=== PATIENT | male | born 1965 | race Caucasian/White ===

== ENCOUNTER → 2019-05-12 16:30 | Outpatient (BNVA) | payer SELFPAY | PROVIDERS: Family Provider Nurse Practitioner Family; PCP Nurse Practitioner Family; Referring Provider Nurse Practitioner Family; Visit Provider Urology | DX: R31.0 Gross hematuria (principal); N20.1 Calculus of ureter | CPT/HCPCS: 81001; 87086; 88112 ==

== ENCOUNTER 2019-06-09 10:00 | Outpatient (CLI) | payer SELFPAY ==
--- NOTE | 2019-06-09 10:00 | CT_ITS ---
WS: [id number] CT ABDOMEN AND PELVIS WITH AND WITHOUT CONTRAST HISTORY: Microscopic Hematuria TECHNIQUE: Unenhanced 5 mm axial imaging first performed through the abdomen. Post contrast imaging t hrough the abdomen and pelvis. Oral contrast has not been provided. Sagittal and coronal reformats a re submitted. All CT scans at [facility] use at least one of these dose optimization tech niques: automated exposure control; mA and/or kV adjustment per patient size (includes targeted exams where dose is matched to clinical indication); or iterative reconstruction. CONTRAST: Omnipaque 300; 95 mL IV. DLP: 5278.74 mGy.cm COMPARISON: None available. Lung bases are clear. Heart size is normal. No pericardial or pleural effusions. Small hiatal hernia. RIGHT kidney: RIGHT kidney is normal length at 12.1 cm. There are several small hypoattenuating sergio s in the kidney. The largest in the lower pole measures 2.6 x 2.3 cm without significant enhancement. The remaining hypodensities are also probably cysts. No solid mass, stone/calcification or obstructi on. No perinephric stranding. Good excretion from the kidney with normal filling of the ureter. LEFT kidney: Kidney measures 11.6 cm in length. No renal stone/calcification or mass. No obstruction. No urological filling defect. LEFT ureter is normal. Normal size liver with diffuse moderate hepatic steatosis. Spleen is normal size with granulomata. Ga llbladder is slightly contracted with no adjacent inflammation. No bile duct dilatation. Normal pancr eas and adrenal glands. No adenopathy or ascites. The appendix is normal. No GI tract obstruction. There are a few very small diverticula in the descen ding and sigmoid colon without acute inflammation. No adenopathy. Urinary bladder is well distended. No filling defect in the bladder. Mild lumbar and thoracic spondylosis. No bone destruction. Remote fractures in the lateral inferior R IGHT rib cage. CT/CT abdomen pelvis wo/w [id number] IMPRESSION: 1. No solid renal mass, obstruction or stones. 2. RIGHT renal cysts. The largest in the lower pole measures 2.6 x 2.3 cm. 3. Hepatic steatosis. 4. Mild diverticulosis. 5. Negative urinary bladder.
[2019-06-09] MEDS: iohexol 300 mg/mL 100 mL Btl IV (10:22)
== END 2019-06-09 10:01 | disposition home or self-care (01) ==
PROVIDERS: Family Provider Nurse Practitioner Family; PCP Nurse Practitioner Family; Visit Provider Urology
DX: N28.1 Cyst of kidney, acquired (principal); K76.0 Fatty (change of) liver, not elsewhere classified; K57.90 Diverticulosis of intestine, part unspecified, without perforation or abscess without bleeding; R31.29 Other microscopic hematuria
CPT/HCPCS: 74178; 81001

== ENCOUNTER → 2020-05-03 13:15 | Outpatient (BNVA) | payer OTHER, SELFPAY | PROVIDERS: Family Provider Nurse Practitioner Family; PCP Nurse Practitioner Family; Visit Provider Internal Medicine Cardiovascular Disease | DX: I50.9 Heart failure, unspecified (principal) | CPT/HCPCS: 80048 ==

== ENCOUNTER 2020-06-23 19:45 | Emergency (ER) | payer OTHER, SELFPAY ==
[2020-06-23 19:52] VITALS: BP 144/81; PULSE 83; RESP 16; TEMP 36.9; O2SAT 96; BMI 40.4
--- NOTE | 2020-06-23 20:22 | W.ED.GENADLT ---
Documented by User: JEANNETTE Salazar 06/24/20 00:51 HPI - General Adult General: Chief complaint: General Medical Stated complaint: PHY REF/ABNORMAL LABS Time Seen by Provider: 06/23/20 20:21 Source: patient and family Mode of arrival: ambulatory Limitations: no limitations History of Present Illness: HPI narrative: Patient is a 55-year-old male with a history of nonischemic cardiomyopathy, severely depressed LV function estimated ejection fraction 38%, hypertension, and mild to moderate aortic insufficiency here after he was called with a critical potassium result. Patient states his only complaint is fatigue that he has had over the last few weeks. He is set to follow-up with primary care for vitamin testing. He tell me he has been diagnosed with a leaky heart valve and cardiology has spoken to him about surgery regarding this but patient is opting to treat with medications at this time. He states he was taking lasix and spironolactone but had unwanted side effects from the spironolactone so was taken off this and replaced with metolazone. He takes oral potassium daily. He reportedly gets up frequently at night to urinate so wonders if this could be contributing to his fatigue. Associated symptoms: Deny chest pain, confusion, dyspnea, headache(s), malaise, nausea, rash or vomiting Review of Systems Const: Reports: fatigue; Denies: fever(s), chills, body aches, malaise or night sweats Eyes: Denies: change in vision or blurry vision Card: Denies: chest pain Resp: Denies: dyspnea GI: Denies: nausea or vomiting Musc: Denies: neck pain or back pain Skin/Breast: Denies: rash Neuro: Denies: headache(s), numbness in extremities, weakness in extremities, sensory changes, frequent falls, dizziness or confusion PFSH ED PFSH: Medical History Cardiomyopathy Chest pain CHF (congestive heart failure) HTN (hypertension) Microscopic hematuria Family History Family/Other CAD (coronary artery disease) Diabetes Social History Smoking and tobacco status: never smoked Alcohol intake: never Adopted: No Caregiver/support person: No Lives independently: No Household members: spouse Marital status: Current occupational status: employed and unemployed Current occupation: SELF EMPLOYED Physical Exam Const: COMMON NORMALS: no acute distress, patient oriented x3, no limitations and alert GENERAL APPEARANCE: cooperative NUTRITIONAL APPEARANCE: obese ORIENTATION/CONSCIOUSNESS: Yes awake, Yes oriented to person, Yes oriented to place and Yes oriented to time HENMT: COMMON NORMALS: normocephalic and atraumatic HEAD & SCALP: normocephalic and atraumatic Resp: COMMON NORMALS: normal respiratory effort and clear to auscultation bilaterally AUSCULTATION: clear to auscultation bilaterally Cardio: COMMON NORMALS: regular rate and regular rhythm RATE: regular rate RHYTHM: regular rhythm Extremity: COMMON NORMALS: no calf tenderness and no pedal edema Neuro: COMMON NORMALS: patient oriented x3 SENSORIUM/ORIENTATION: Yes alert, Yes oriented to person, Yes oriented to place and Yes oriented to time Skin: COMMON NORMALS: no rashes or lesions noted GENERAL SKIN EXAM: no rashes or lesions noted Course Vital Signs: Vital signs: Vital Signs Temperature 98.4 F 06/24/20 01:17 Pulse Rate 70 06/24/20 01:17 Respiratory Rate 20 H 06/24/20 01:17 Blood Pressure 141/95 06/24/20 01:17 Pulse Oximetry 94 06/24/20 01:17 MDM - General Adult MDM Narrative: Medical decision making narrative: Patient's potassium upon arrival was 2.6. He was given 40meq oral potassium and 20meq IV. Repeat BMP somehow showed an even lower potassium than when he arrived at 2.5. Magnesium was normal. I do not note any acute abnormalities to his EKG. He was noted to have hyperglycemia at 333. Patient tells me he does not have a diagnosis of diabetes. His HA1C was 7.6. Patient was also noted to have elevated LFTs which are nonspecific. He does not complain of abdominal pain. His bilirubin was normal. Patient's vital signs of been stable throughout his stay. I told patient because of his continued critically low potassium that he needs to come into the hospital for further evaluation however patient adamantly refuses. 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 Patient was counseled on the risks of severely low hypokalemia including cardiac arrhythmias, severe muscle weakness that can cause respiratory failure, nephropathy, and even . Patient was given an additional 60meq oral potassium prior to signing out AMA. Patient was urged to come back to the emergency department tomorrow for lab recheck. Patient agrees to this. Lab Data: Labs: Lab Results 06/23/20 06/23/20 06/23/20 Range/Units 20:36 20:36 20:36 WBC 8.2 (4.0-10.0) 10^3/ uL RBC 5.00 (4.1-5.3) 10^6/u L Hgb 16.4 (11.7-16.6) g/dL Hct 47.1 (42.0-52.0) % MCV 94.2 H (80-94) fL MCH 32.8 (28.0-34.0) pg MCHC 34.8 (30.0-36.0) g/dL RDW 12.0 L (12.1-15.1) % Plt Count 171 (130-400) 10^3/c mm MPV 11.4 H (7.4-10.4) fL Neut % (Auto) 60.4 % Lymph % (Auto) 27.2 % [place] % (Auto) 10.4 % Eos % (Auto) 1.1 % Baso % (Auto) 0.7 % Neut # (Auto) 4.97 (1.8-7.7) 10^3/u L Lymph # (Auto) 2.2 (0.8-4.8) 10^3/u L [place] # (Auto) 0.9 (0.2-0.9) 10^3/u L Eos # (Auto) 0.1 (0.0-0.8) 10^3/u L Baso # (Auto) 0.1 (0.0-0.1) 10^3/u L Nucleated RBC % (a uto) 0 % Nucleated RBCs # 0.0 /100WBC Sodium Cancelled Potassium Cancelled Chloride Cancelled Carbon Dioxide Cancelled Anion Gap Cancelled BUN Cancelled Creatinine Cancelled GFR Calculation Cancelled Glucose Cancelled Estimat Average Gl ucose 171 Hemoglobin A1c 7.6 H (4.0-6.0) % Calculated Osmolal ity Cancelled Calcium Cancelled Magnesium Cancelled Total Bilirubin Cancelled AST Cancelled ALT Cancelled Alkaline Phosphata se Cancelled Total Protein Cancelled Albumin Cancelled Globulin Cancelled 06/23/20 06/23/20 Range/Units 21:39 23:43 WBC (4.0-10.0) 10^3/ uL RBC (4.1-5.3) 10^6/u L Hgb (11.7-16.6) g/dL Hct (42.0-52.0) % MCV (80-94) fL MCH (28.0-34.0) pg MCHC (30.0-36.0) g/dL RDW (12.1-15.1) % Plt Count (130-400) 10^3/c mm MPV (7.4-10.4) fL Neut % (Auto) % Lymph % (Auto) % [place] % (Auto) % Eos % (Auto) % Baso % (Auto) % Neut # (Auto) (1.8-7.7) 10^3/u L Lymph # (Auto) (0.8-4.8) 10^3/u L [place] # (Auto) (0.2-0.9) 10^3/u L Eos # (Auto) (0.0-0.8) 10^3/u L Baso # (Auto) (0.0-0.1) 10^3/u L Nucleated RBC % (a uto) % Nucleated RBCs # /100WBC Sodium 132 L 132 L Potassium 2.6 L* 2.5 L* Chloride 88 L 90 L Carbon Dioxide 33 H 32 H Anion Gap 13.6 12.5 BUN 20 18 Creatinine 1.1 0.9 GFR Calculation 69.8 L 87.9 L Glucose 333 H 291 H Estimat Average Gl ucose Hemoglobin A1c (4.0-6.0) % Calculated Osmolal ity 290 287 Calcium 8.5 8.4 L Magnesium 2.1 Total Bilirubin 0.4 AST 83 H ALT 64 H Alkaline Phosphata se 159 H Total Protein 7.0 Albumin 3.4 L Globulin 3.6 EKG Data^: EKG 1: EKG interpretation date: 06/24/20 EKG interpretation time: 00:35 Interpretation: Sinus rhythm Rate [address] elevation or depression changes noted Discharge Plan Discharge Patient Disposition: Left Against Medical Advice Clinical Impression: Acute hypokalemia, Diabetes mellitus, new onset Condition: Stable Prescriptions: No Action metolazone 2.5 mg tablet 2.5 mg PO BID Qty: 180 RF: 3 lidocaine HCl 2 % jelly 15 ml INTRA-URET ONCE Qty: 1 RF: 0 aspirin 81 mg tablet,delayed release (DR/EC) 81 mg PO QDAY RF: 0 carvedilol 6.25 mg tablet 6.25 mg PO DIRECTED RF: 0 furosemide [Lasix] 40 mg tablet 60 mg PO DIRECTED Qty: 135 RF: 3 spironolactone [Aldactone] 25 mg tablet 25 mg PO DAILY Qty: 90 RF: 3 potassium chloride 20 mEq tablet extended release 20 meq PO BID Qty: 180 RF: 3 Referrals: Ammy Duque FNP-C [Primary Care Provider] - Coding Level of Care Code ED Monument Installer for Chg Fwd Exam Detailed Documented by User: Nish Sharpe DO 06/24/20 03:11 HPI - General Adult General: Chief complaint: General Medical Stated complaint: PHY REF/ABNORMAL LABS Time Seen by Provider: 06/23/20 20:21 [facility] PFSH: Medical History Cardiomyopathy Chest pain CHF (congestive heart failure) HTN (hypertension) Microscopic hematuria Family History Family/Other CAD (coronary artery disease) Diabetes Social History Smoking and tobacco status: never smoked Alcohol intake: never Adopted: No Caregiver/support person: No Lives independently: No Household members: spouse Marital status: Current occupational status: employed and unemployed Current occupation: SELF EMPLOYED Course Vital Signs: Vital signs: Vital Signs Temperature 98.4 F 06/24/20 01:17 Pulse Rate 70 06/24/20 01:17 Respiratory Rate 20 H 06/24/20 01:17 Blood Pressure 141/95 06/24/20 01:17 Pulse Oximetry 94 06/24/20 01:17 MDM - General Adult MDM Narrative: Medical decision making narrative: 55-year-old male originally seen by Mrs. Sood?ALAN Cuevas. I agree with her history, evaluation, and treatment. This patient came in with a outpatient labs showing potassium of 2.4. It was 2.6 here initially. He was given oral potassium in pill form of 40 mEq as well as 20 mEq IV. His potassium following this was 2.5 more potassium was ordered. The patient was urged to stay in observation due to a significantly low potassium, but the patient refused and signed out AMA. He knows his risks of doing so, including heart failure, arrhythmia, and . Lab Data: Labs: Lab Results 06/23/20 06/23/20 06/23/20 Range/Units 20:36 20:36 20:36 WBC 8.2 (4.0-10.0) 10^3/ uL RBC 5.00 (4.1-5.3) 10^6/u L Hgb 16.4 (11.7-16.6) g/dL Hct 47.1 (42.0-52.0) % MCV 94.2 H (80-94) fL MCH 32.8 (28.0-34.0) pg MCHC 34.8 (30.0-36.0) g/dL RDW 12.0 L (12.1-15.1) % Plt Count 171 (130-400) 10^3/c mm MPV 11.4 H (7.4-10.4) fL Neut % (Auto) 60.4 % Lymph % (Auto) 27.2 % [place] % (Auto) 10.4 % Eos % (Auto) 1.1 % Baso % (Auto) 0.7 % Neut # (Auto) 4.97 (1.8-7.7) 10^3/u L Lymph # (Auto) 2.2 (0.8-4.8) 10^3/u L [place] # (Auto) 0.9 (0.2-0.9) 10^3/u L Eos # (Auto) 0.1 (0.0-0.8) 10^3/u L Baso # (Auto) 0.1 (0.0-0.1) 10^3/u L Nucleated RBC % (a uto) 0 % Nucleated RBCs # 0.0 /100WBC Sodium Cancelled Potassium Cancelled Chloride Cancelled Carbon Dioxide Cancelled Anion Gap Cancelled BUN Cancelled Creatinine Cancelled GFR Calculation Cancelled Glucose Cancelled Estimat Average Gl ucose 171 Hemoglobin A1c 7.6 H (4.0-6.0) % Calculated Osmolal ity Cancelled Calcium Cancelled Magnesium Cancelled Total Bilirubin Cancelled AST Cancelled ALT Cancelled Alkaline Phosphata se Cancelled Total Protein Cancelled Albumin Cancelled Globulin Cancelled 06/23/20 06/23/20 Range/Units 21:39 23:43 WBC (4.0-10.0) 10^3/ uL RBC (4.1-5.3) 10^6/u L Hgb (11.7-16.6) g/dL Hct (42.0-52.0) % MCV (80-94) fL MCH (28.0-34.0) pg MCHC (30.0-36.0) g/dL RDW (12.1-15.1) % Plt Count (130-400) 10^3/c mm MPV (7.4-10.4) fL Neut % (Auto) % Lymph % (Auto) % [place] % (Auto) % Eos % (Auto) % Baso % (Auto) % Neut # (Auto) (1.8-7.7) 10^3/u L Lymph # (Auto) (0.8-4.8) 10^3/u L [place] # (Auto) (0.2-0.9) 10^3/u L Eos # (Auto) (0.0-0.8) 10^3/u L Baso # (Auto) (0.0-0.1) 10^3/u L Nucleated RBC % (a uto) % Nucleated RBCs # /100WBC Sodium 132 L 132 L Potassium 2.6 L* 2.5 L* Chloride 88 L 90 L Carbon Dioxide 33 H 32 H Anion Gap 13.6 12.5 BUN 20 18 Creatinine 1.1 0.9 GFR Calculation 69.8 L 87.9 L Glucose 333 H 291 H Estimat Average Gl ucose Hemoglobin A1c (4.0-6.0) % Calculated Osmolal ity 290 287 Calcium 8.5 8.4 L Magnesium 2.1 Total Bilirubin 0.4 AST 83 H ALT 64 H Alkaline Phosphata se 159 H Total Protein 7.0 Albumin 3.4 L Globulin 3.6 Discharge Plan Discharge Patient Disposition: Left Against Medical Advice Clinical Impression: Acute hypokalemia, Diabetes mellitus, new onset Condition: Stable Prescriptions: No Action metolazone 2.5 mg tablet 2.5 mg PO BID Qty: 180 RF: 3 lidocaine HCl 2 % jelly 15 ml INTRA-URET ONCE Qty: 1 RF: 0 aspirin 81 mg tablet,delayed release (DR/EC) 81 mg PO QDAY RF: 0 carvedilol 6.25 mg tablet 6.25 mg PO DIRECTED RF: 0 furosemide [Lasix] 40 mg tablet 60 mg PO DIRECTED Qty: 135 RF: 3 spironolactone [Aldactone] 25 mg tablet 25 mg PO DAILY Qty: 90 RF: 3 potassium chloride 20 mEq tablet extended release 20 meq PO BID Qty: 180 RF: 3 Referrals: Ammy Duque FNP-C [Primary Care Provider] - Coding Level of Care Code ED Monument Installer for Chg Fwd Exam Detailed
[2020-06-23 20:26] VITALS: BP 140/83; PULSE 79; RESP 22; O2SAT 95
[2020-06-23] MEDS: potassium chloride premix 100 ML 50 MEQ IV (20:46)
[2020-06-23] MEDS: potassium chloride ER 20 mEq Tablet 40 MEQ PO (20:46)
[2020-06-23 20:58] LABS: Basophils # 0.1 10^3/uL (0.0-0.1); Basophils % 0.7 %; Eosinophils # 0.1 10^3/uL (0.0-0.8); Eosinophils % 1.1 %; Hematocrit 47.1 % (42.0-52.0); Hemoglobin 16.4 g/dL (11.7-16.6); Lymphocytes # 2.2 10^3/uL (0.8-4.8); Lymphocytes % 27.2 %; Mean Corpuscular HGB Conc 34.8 g/dL (30.0-36.0); Mean Corpuscular Hemoglobin 32.8 pg (28.0-34.0); Mean Corpuscular Volume 94.2 fL (80-94); Mean Platelet Volume 11.4 fL (7.4-10.4); Monocytes # 0.9 10^3/uL (0.2-0.9); Monocytes % 10.4 %; Neutrophils # 4.97 10^3/uL (1.8-7.7); Neutrophils % 60.4 %; Nucleated Red Blood Cells % 0 %; Platelet Count 171 10^3/cmm (130-400); White Blood Count 8.2 10^3/uL (4.0-10.0)
[2020-06-23 21:00] VITALS: BP 100/55; PULSE 72; RESP 18; O2SAT 95
[2020-06-23 22:00] VITALS: BP 131/71; PULSE 74; RESP 29; O2SAT 94
[2020-06-23 22:10] LABS: Alanine Aminotransferase 64 U/L (0-41); Albumin Level 3.4 g/dL (3.5-5.2); Alkaline Phosphatase 159 IU/L (40-130); Blood Urea Nitrogen 20 mg/dL (6-20); Calcium 8.5 mg/dL (8.5-10.5); Carbon Dioxide 33 mmol/L (22-29); Chloride 88 mmol/L (98-107); Globulin 3.6 g/dL (1.3-4.6); Glomerular Filtration Rate 69.8 mL/min (90-130); Glucose 333 mg/dL (65-115); Magnesium 2.1 mg/dL (1.7-2.3); Osmolality Calculated 290 mOsm/kg (285-295); Sodium 132 mmol/L (136-145); Total Bilirubin 0.4 mg/dL (0.15-1.2)
[2020-06-23 22:11] LABS: Anion Gap 13.6 (5-19)
[2020-06-23 22:12] LABS: Aspartate Amino Transferase 83 U/L (0-40)
[2020-06-23 22:13] LABS: Potassium 2.6 mmol/L (3.5-5.1)
[2020-06-23 23:00] VITALS: BP 132/76; PULSE 75; RESP 24; O2SAT 94
[2020-06-23 23:54] LABS: Estmated Average Glucose 171; Hemoglobin A1C 7.6 % (4.0-6.0)
[2020-06-24] VITALS: BP 129/73; PULSE 71; RESP 23; O2SAT 94
[2020-06-24 00:15] LABS: Anion Gap 12.5 (5-19); Blood Urea Nitrogen 18 mg/dL (6-20); Calcium 8.4 mg/dL (8.5-10.5); Carbon Dioxide 32 mmol/L (22-29); Chloride 90 mmol/L (98-107); Glomerular Filtration Rate 87.9 mL/min (90-130); Glucose 291 mg/dL (65-115); Osmolality Calculated 287 mOsm/kg (285-295); Sodium 132 mmol/L (136-145)
[2020-06-24 00:19] LABS: Potassium 2.5 mmol/L (3.5-5.1)
--- NOTE | 2020-06-24 00:37 | ECG_ITS ---
[facility] Test Date: 2020-06-24 Pat Name: Casimiro Garcia Department: Room: Gender: Male Dentist Private Practice: : 1965 Requested By: Monet Sood Order Number: [id number] Livia MD: Cristhian Hall M.D. Measurements Intervals [place] Rate: 74 P: 30 IA: 183 QRS: -23 QRSD: 119 T: 71 QT: 402 QTc: 446 Interpretive Statements SINUS RHYTHM BORDERLINE LEFT AXIS DEVIATION [QRS AXIS < -20] LEFT VENTRICULAR HYPERTROPHY AND ST-T CHANGE [VOLTAGE CRITERIA PLUS ST/T ABNORMALITY] INTERPRETATION BASED ON A DEFAULT AGE OF 40 YEARS Compared to ECG 02/20/2018 16:57:23 No significant changes Electronically Signed On 06-24-2020 19:40:15 GAMB CUTTER by Cristhian Hall M.D. [id number]
[2020-06-24] MEDS: potassium chloride ER 20 mEq Tablet 60 MEQ PO (01:11)
[2020-06-24 01:17] VITALS: BP 141/95; PULSE 70; RESP 20; TEMP 36.9; O2SAT 94
== END 2020-06-24 01:21 | disposition left against medical advice (07) ==
PROVIDERS: Emergency Provider Physician Assistant; PCP Nurse Practitioner Family
DX: E87.6 Hypokalemia (principal); E11.9 Type 2 diabetes mellitus without complications; Z79.82 Long term (current) use of aspirin; Z53.21 Procedure and treatment not carried out due to patient leaving prior to being seen by health care provider; I11.0 Hypertensive heart disease with heart failure; I50.9 Heart failure, unspecified
CPT/HCPCS: 80048; 80053; 83036; 83735; 85025; 93005; 96365; 96366; 99284; J3480

== ENCOUNTER 2020-06-24 22:35 | Emergency (ER) | payer OTHER, SELFPAY ==
[2020-06-24 22:56] VITALS: BP 144/87; PULSE 72; RESP 16; TEMP 36.2; O2SAT 96; BMI 40.4
[2020-06-25 00:34] VITALS: BP 132/77; PULSE 72; RESP 18; O2SAT 96
--- NOTE | 2020-06-25 00:42 | W.ED.GENADLT ---
HPI - General Adult General: Chief complaint: General Medical Stated complaint: here 06/23, potassium needs checked Time Seen by Provider: 06/25/20 00:33 Source: patient Mode of arrival: ambulatory Limitations: no limitations History of Present Illness: HPI narrative: 55-year-old male patient comes in today for concerns of low potassium. Patient was treated yesterday for a potassium level of 2.6. Patient had to sign out AMA in order to feed and do chores today. Patient comes back in tonight for recheck of potassium. Patient takes some strong diuretics which will swipe his potassium. Patient denies any chest pain or difficulty breathing. Review of Systems General: Reports: 10 or more systems reviewed and unremarkable except in HPI and below Endo: Reports: other (Recheck potassium) PFSH ED PFSH: Medical History Cardiomyopathy Chest pain CHF (congestive heart failure) HTN (hypertension) Microscopic hematuria Family History Family/Other CAD (coronary artery disease) Diabetes Social History Smoking and tobacco status: never smoked Alcohol intake: never Adopted: No Caregiver/support person: No Lives independently: No Household members: spouse Marital status: Current occupational status: employed and unemployed Current occupation: SELF EMPLOYED Physical Exam Const: COMMON NORMALS: no acute distress and patient oriented x3 GENERAL APPEARANCE: cooperative HENMT: COMMON NORMALS: normocephalic and Normal external nose present HEAD & SCALP: normal to inspection and normocephalic NOSE: Normal external nose present MOUTH: Normal oral and palatal mucosa present Eye: GENERAL EYE: appearance normal, both eyes and all related structures Neck/C-Spine: COMMON NORMALS: full ROM Chest: COMMONS NORMALS: normal inspection of the chest Resp: COMMON NORMALS: normal respiratory effort EFFORT & INSPECTION: Yes able to speak in complete sentences Cardio: COMMON NORMALS: regular rate and regular rhythm RATE: regular rate RHYTHM: regular rhythm GI: COMMON NORMALS: non-tender Back/Pelvis: COMMON NORMALS: thoracic and lumbar spine normal to inspection Extremity: COMMON NORMALS: normal to inspection Neuro: COMMON NORMALS: patient oriented x3 and moves all extremities Psych: COMMON NORMALS: mental status grossly normal and cooperative Skin: COMMON NORMALS: no rashes or lesions noted GENERAL SKIN EXAM: no rashes or lesions noted Course Vital Signs: Vital signs: Vital Signs Temperature 97.1 F L 06/24/20 22:56 Pulse Rate 72 06/25/20 00:34 Respiratory Rate 18 06/25/20 00:34 Blood Pressure 132/77 06/25/20 00:34 Pulse Oximetry 96 06/25/20 00:34 MDM - General Adult MDM Narrative: Medical decision making narrative: Patient comes in today for recheck of potassium. Patient is on metolazone and furosemide both which spilled potassium. 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 Patient appears well. Lungs are clear to auscultation. Abdomen soft nontender. Skin is warm and dry. Vital signs are normal. Differential diagnosis includes acute hypokalemia, adverse drug effect, ACS. Recheck on potassium noted at 2.6. Patient was given another 40 mEq of potassium and will continue on 40 mEq of potassium 3 times a day. Patient is going to hold furosemide until repeat potassium can be drawn. I do see expect that the Zaroxolyn is more likely the cause for the low potassium as have seen this before in the past. Patient is going to follow-up with his primary care provider on Friday for repeat potassium level, and will also contact Dr. Cooley's office to talk further with him. I reviewed need for patient to return to the emergency room including increased shortness of breath, irregular heart rate, and any chest pain. Patient reported understanding agreed to plan. Lab Data: Labs: Lab Results 06/25/20 Range/Units 00:45 Sodium 132 L (136-145) mmol/L Potassium 2.6 L* (3.5-5.1) mmol/L Chloride 88 L (98-107) mmol/L Carbon Dioxide 32 H (22-29) mmol/L Anion Gap 14.6 (5-19) BUN 17 (6-20) mg/dL Creatinine 0.9 (0.7-1.2) mg/dL GFR Calculation 87.9 L (90-130) mL/min Glucose 257 H (65-115) mg/dL Calculated Osmolal ity 284 L (285-295) mOsm/k g Calcium 9.7 (8.5-10.5) mg/dL Discharge Plan Discharge Patient Disposition: Home Clinical Impression: Hypokalemia due to loss of potassium Condition: Stable Prescriptions: Changed potassium chloride 20 mEq tablet extended release 40 meq PO BID Qty: 180 RF: 3 Held furosemide [Lasix] 40 mg tablet 60 mg PO DIRECTED Qty: 135 RF: 3 Hold Instructions: Resume on 06/28/20. No Action metolazone 2.5 mg tablet 2.5 mg PO BID Qty: 180 RF: 3 lidocaine HCl 2 % jelly 15 ml INTRA-URET ONCE Qty: 1 RF: 0 aspirin 81 mg tablet,delayed release (DR/EC) 81 mg PO QDAY RF: 0 carvedilol 6.25 mg tablet 6.25 mg PO DIRECTED RF: 0 spironolactone [Aldactone] 25 mg tablet 25 mg PO DAILY Qty: 90 RF: 3 Discharge Orders: Discharge ED (Routine); Ordered 06/25/20 Ordered By: Manny Nowak Referrals: Ammy Duque FNP-C [Primary Care Provider] - Discharge Diet: Usual diet Discharge Activity: Increase activity as tolerated Patient Instructions: Hypokalemia (ED), Opioid Safety Activity Restrictions/Additional Instructions: Hold furosemide for the next 3 days. Increase potassium to 40 mEq 3 times a day. Follow-up with primary care on Friday for recheck on potassium level. Talk with Dr. Edwards's office about the metolazone and furosemide regarding your potassium being low. Monitor for shortness of breath or chest pain or irregular heart rate. Return to the emergency department for any concerns. Coding Level of Care Code ED Asbestos Microscopist for Malissa Fwsantos Exam Comprehensive
[2020-06-25 01:17] LABS: Anion Gap 14.6 (5-19); Blood Urea Nitrogen 17 mg/dL (6-20); Calcium 9.7 mg/dL (8.5-10.5); Carbon Dioxide 32 mmol/L (22-29); Chloride 88 mmol/L (98-107); Glomerular Filtration Rate 87.9 mL/min (90-130); Glucose 257 mg/dL (65-115); Osmolality Calculated 284 mOsm/kg (285-295); Sodium 132 mmol/L (136-145)
[2020-06-25 01:23] LABS: Potassium 2.6 mmol/L (3.5-5.1)
[2020-06-25] MEDS: potassium chloride oral liq 20 mEq/15 mL UDC 40 MEQ PO (01:56)
[2020-06-25 01:58] VITALS: BP 138/79; PULSE 83; RESP 17; O2SAT 98
== END 2020-06-25 03:09 | disposition home or self-care (01) ==
PROVIDERS: Emergency Provider Nurse Practitioner Family; PCP Nurse Practitioner Family
DX: E87.6 Hypokalemia (principal); Z79.82 Long term (current) use of aspirin; I11.0 Hypertensive heart disease with heart failure; I50.9 Heart failure, unspecified
CPT/HCPCS: 80048

== ENCOUNTER → 2020-06-27 08:52 | Outpatient (BNVA) | payer OTHER, SELFPAY | PROVIDERS: PCP Nurse Practitioner Family; Visit Provider Nurse Practitioner Family | DX: R53.83 Other fatigue (principal); I10 Essential (primary) hypertension | CPT/HCPCS: 80053; 80061; 82306; 82607; 84443; 85025 ==

== ENCOUNTER → 2020-08-04 10:15 | Outpatient (BNVA) | payer OTHER, SELFPAY | PROVIDERS: PCP Nurse Practitioner Family; Visit Provider Internal Medicine Cardiovascular Disease | DX: I42.9 Cardiomyopathy, unspecified (principal); I50.9 Heart failure, unspecified; I10 Essential (primary) hypertension | CPT/HCPCS: 80048; 83735 ==

== ENCOUNTER → 2020-11-22 14:51 | Outpatient (BNVA) | payer OTHER, SELFPAY | PROVIDERS: PCP Nurse Practitioner Family; Visit Provider Urology | DX: R31.29 Other microscopic hematuria (principal); Z84.1 Family history of disorders of kidney and ureter | CPT/HCPCS: 81003 ==

== ENCOUNTER → 2021-03-20 08:37 | Outpatient (BNVA) | payer OTHER, SELFPAY | PROVIDERS: PCP Nurse Practitioner Family; Visit Provider Nurse Practitioner Family | DX: M54.9 Dorsalgia, unspecified (principal); R39.11 Hesitancy of micturition; M25.552 Pain in left hip; E11.69 Type 2 diabetes mellitus with other specified complication | CPT/HCPCS: 36416; 80053; 80061; 81000; 82962; 83036; 84153; 84443; 85025 ==

== ENCOUNTER 2021-03-22 09:28 | Outpatient (CLI) | payer OTHER, SELFPAY ==
--- NOTE | 2021-03-22 09:33 | XR_ITS ---
WS: [id number] Exam: XR hip LT 2-3V wo/w pel* [id number] Date/Time of Exam: 03/22/2021 9:33 AM Reason For Exam: M25.552 - Pain in left hip No fracture or dislocation. The joint compartment is well maintained. Normal soft tissues. Degenerati ve change of the acetabulum. XR/XR hip LT 2-3V wo/w pel* [id number] IMPRESSION: 1. Minimal degenerative change of the acetabulum. 2. No fracture or dislocation.
== END 2021-03-22 09:29 | disposition home or self-care (01) ==
LOC: RAD 09:31
PROVIDERS: PCP Nurse Practitioner Family; Visit Provider Nurse Practitioner Family
DX: M25.552 Pain in left hip (principal)
CPT/HCPCS: 73502

== ENCOUNTER → 2022-08-26 14:02 | Outpatient (BNVA) | payer MEDICAID, SELFPAY | PROVIDERS: PCP Family Medicine; Visit Provider Family Medicine | DX: M54.50 Low back pain, unspecified (principal) | CPT/HCPCS: 81000 ==

== ENCOUNTER → 2022-09-24 15:42 | Outpatient (BNVA) | payer MEDICAID, SELFPAY | PROVIDERS: PCP Family Medicine; Visit Provider Internal Medicine | DX: E11.9 Type 2 diabetes mellitus without complications (principal); E78.6 Lipoprotein deficiency | CPT/HCPCS: 36415; 80053; 80061; 82044; 82306; 83036; 84446; 84590; 84597 ==

== ENCOUNTER 2022-12-24 15:09 | Outpatient (CLI) | payer MEDICAID, SELFPAY ==
[2022-12-24 16:11] LABS: Estmated Average Glucose 157; Hemoglobin A1C 7.1 % (4.0-6.0)
[2022-12-24 16:21] LABS: Alanine Aminotransferase 24 U/L (0-41); Alkaline Phosphatase 115 U/L (40-130); Aspartate Amino Transferase 33 U/L (0-40); Blood Urea Nitrogen 16 mg/dL (6-20); Calcium 8.9 mg/dL (8.5-10.5); Carbon Dioxide 26 mmol/L (22-29); Chloride 109 mmol/L (98-107); Chol HDL Ratio 1.61 mg/dL (1.0-5.00); Cholesterol 103 mg/dL (0-200); Glomerular Filtration Rate 77.3 mL/min (90-130); Glucose 150 mg/dL (65-115); HDL Cholesterol 64 mg/dL (60-100); LDL Cholesterol Calculated 28 mg/dL (50-129); LDL HDL Ratio 0.44 RATIO (0.00-3.22); Osmolality Calculated 298 mOsm/kg (285-295); Sodium 142 mmol/L (136-145); Total Bilirubin 0.4 mg/dL (0.15-1.2); Triglycerides 53 mg/dL (0-150)
[2022-12-24 16:22] LABS: Creatinine Urine, Random 167 mg/dL (39-259); Microalbum Creatinine Ratio Ur 6 mg/dL (0-20); Microalbumin Random Urine 1 ug/dL (0-20)
[2022-12-24 17:34] LABS: Anion Gap 12.1 (5-19); Potassium 5.1 mmol/L (3.5-5.1)
== END 2022-12-24 15:10 | disposition home or self-care (01) ==
LOC: LAB 15:12
PROVIDERS: PCP Family Medicine; Visit Provider Internal Medicine
DX: E11.9 Type 2 diabetes mellitus without complications (principal)
CPT/HCPCS: 36415; 80053; 80061; 82044; 83036

== ENCOUNTER 2023-03-31 16:22 | Outpatient (CLI) | payer MEDICAID, SELFPAY ==
[2023-03-31 17:42] LABS: Alanine Aminotransferase 27 U/L (0-41); Albumin Level 4.1 g/dL (3.5-5.2); Alkaline Phosphatase 111 U/L (40-130); Anion Gap 14.9 (5-19); Aspartate Amino Transferase 32 U/L (0-40); Blood Urea Nitrogen 9 mg/dL (6-20); Calcium 8.8 mg/dL (8.5-10.5); Carbon Dioxide 26 mmol/L (22-29); Chloride 104 mmol/L (98-107); Cholesterol 98 mg/dL (0-200); Globulin 3.3 g/dL (1.3-4.6); Glucose 150 mg/dL (65-115); HDL Cholesterol 70 mg/dL (60-100); LDL Cholesterol Calculated 16 mg/dL (50-129); LDL HDL Ratio 0.23 RATIO (0.00-3.22); Osmolality Calculated 294 mOsm/kg (285-295); Potassium 3.9 mmol/L (3.5-5.1); Sodium 141 mmol/L (136-145); Total Bilirubin 0.6 mg/dL (0.15-1.2); Total Protein 7.4 g/dL (6.6-8.7); Triglycerides 58 mg/dL (0-150)
[2023-03-31 18:39] LABS: Creatinine Urine, Random 218 mg/dL (39-259); Microalbum Creatinine Ratio Ur 5 mg/dL (0-20); Microalbumin Random Urine 1 ug/dL (0-20)
[2023-03-31 20:49] LABS: Estmated Average Glucose 137; Hemoglobin A1C 6.4 % (4.0-6.0)
== END 2023-03-31 16:23 | disposition home or self-care (01) ==
LOC: LAB 16:24
PROVIDERS: PCP Family Medicine; Visit Provider Internal Medicine
DX: E11.9 Type 2 diabetes mellitus without complications (principal); E78.6 Lipoprotein deficiency
CPT/HCPCS: 36415; 80053; 80061; 82044; 83036

== ENCOUNTER → 2023-05-23 12:23 | Outpatient (BNVA) | payer MEDICAID, SELFPAY | PROVIDERS: PCP Family Medicine; Visit Provider Family Medicine | DX: Z01.810 Encounter for preprocedural cardiovascular examination (principal) | CPT/HCPCS: 80048; 85025 ==

== ENCOUNTER → 2023-07-16 08:45 | Outpatient (BNVA) | payer MEDICAID, SELFPAY | PROVIDERS: PCP Family Medicine; Visit Provider Internal Medicine | DX: E11.9 Type 2 diabetes mellitus without complications (principal) | CPT/HCPCS: 80053; 80061; 82043; 82985; 83036; 84244 ==

== ENCOUNTER → 2023-10-24 09:42 | Outpatient (BNVA) | payer MEDICAID, SELFPAY | PROVIDERS: PCP Family Medicine; Visit Provider Internal Medicine | DX: E11.9 Type 2 diabetes mellitus without complications (principal) | CPT/HCPCS: 80053; 80061; 82043; 83036 ==

== ENCOUNTER → 2023-10-27 12:37 | Outpatient (BNVA) | payer MEDICAID, SELFPAY | PROVIDERS: PCP Family Medicine; Visit Provider Internal Medicine | DX: E11.9 Type 2 diabetes mellitus without complications (principal); E50.9 Vitamin A deficiency, unspecified; R10.9 Unspecified abdominal pain | CPT/HCPCS: 36415; 81003; 82306; 84446; 84590; 84597 ==

== ENCOUNTER 2023-12-03 14:58 | Outpatient (CLI) | payer MEDICAID, SELFPAY | END 2023-12-03 14:59 | disposition home or self-care (01) | LOC: LAB 14:59 | PROVIDERS: PCP Family Medicine; Visit Provider Internal Medicine | DX: E50.9 Vitamin A deficiency, unspecified (principal) | CPT/HCPCS: 36415 ==

== ENCOUNTER → 2024-01-02 12:08 | Outpatient (BNVA) | payer MEDICAID, SELFPAY | PROVIDERS: PCP Family Medicine; Visit Provider Internal Medicine Cardiovascular Disease | DX: R07.9 Chest pain, unspecified (principal) | CPT/HCPCS: 93005 ==

== ENCOUNTER 2024-06-09 10:22 | Outpatient (CLI) | payer MEDICAID, SELFPAY ==
[2024-06-09 11:25] LABS: Creatinine Urine, Random 25 mg/dL (39-259); Microalbum Creatinine Ratio Ur 40 mg/dL (0-20); Microalbumin Random Urine 1 ug/dL (0-20)
[2024-06-09 11:39] LABS: Estmated Average Glucose 131; Hemoglobin A1C 6.2 % (4.0-6.0)
[2024-06-09 11:43] LABS: 25 Hydroxy Vitamin D 47 ng/mL (30-100); Alanine Aminotransferase 34 U/L (0-41); Albumin Level 4.4 g/dL (3.5-5.2); Alkaline Phosphatase 101 U/L (40-130); Anion Gap 16.2 (5-19); Aspartate Amino Transferase 35 U/L (0-40); Blood Urea Nitrogen 11 mg/dL (6-20); Calcium 9.3 mg/dL (8.5-10.5); Carbon Dioxide 22 mmol/L (22-29); Chloride 109 mmol/L (98-107); Chol HDL Ratio 1.57 mg/dL (1.0-5.00); Cholesterol 107 mg/dL (0-200); Glomerular Filtration Rate 86.7 mL/min (90-130); Glucose 135 mg/dL (65-115); HDL Cholesterol 68 mg/dL (60-100); LDL Cholesterol Calculated 31 mg/dL (50-129); LDL HDL Ratio 0.46 RATIO (0.00-3.22); Osmolality Calculated 297 mOsm/kg (285-295); Potassium 4.2 mmol/L (3.5-5.1); Sodium 143 mmol/L (136-145); Total Bilirubin 0.7 mg/dL (0.15-1.2); Total Protein 7.4 g/dL (6.6-8.7); Triglycerides 40 mg/dL (0-150)
== END 2024-06-09 10:23 | disposition home or self-care (01) ==
LOC: LAB 10:24
PROVIDERS: PCP Nurse Practitioner; Visit Provider Internal Medicine
DX: E11.9 Type 2 diabetes mellitus without complications (principal); E50.9 Vitamin A deficiency, unspecified; R10.9 Unspecified abdominal pain
CPT/HCPCS: 36415; 80053; 80061; 82044; 82306; 83036; 84446; 84590; 84597

== ENCOUNTER → 2024-07-08 11:10 | Outpatient (BNVA) | payer MEDICAID, SELFPAY | PROVIDERS: PCP Nurse Practitioner; Visit Provider Nurse Practitioner | DX: M25.562 Pain in left knee (principal); M17.9 Osteoarthritis of knee, unspecified | CPT/HCPCS: 73562 ==

== ENCOUNTER 2024-08-09 11:04 | Outpatient (CLI) | payer MEDICAID, SELFPAY ==
--- NOTE | 2024-08-09 11:15 | USCV_ITS ---
Casimiro Garcia Age: 59 Gender: M : 1965 Exam Date: 08/09/2024 11:35 Ordering Phys: Tali Alba MD ([email or web address]) Technologist: Exam Location: [facility] [place] Indication: cp BP: 125 / 89 HR: 110 Rhythm: Sinus Technical Quality: Adequate MEASUREMENTS (Male / Female) Normal Values 2D ECHO LV Diastolic Diameter PLAX 6.5 cm 4.2 - 5.9 / 3.9 - 5.3 cm IVS Diastolic Thickness 1.3 cm 0.6 - 1.0 / 0.6 - 0.9 cm IVS Systolic Thickness 1.7 cm LVPW Diastolic Thickness 1.5 cm 0.6 - 1.0 / 0.6 - 0.9 cm LVPW Systolic Thickness 2.3 cm LVOT Diameter 2.1 cm LV Ejection Fraction 2D Teich 37.0 % LV Ejection Fraction MOD 4C 26.1 % LV Ejection Fraction MOD 2C 38.6 % LV Ejection Fraction 2C AL 43.4 % LA Diameter 4.3 cm RA Systolic Volume 4C AL 31.1 ml RA Systolic Volume 4C MOD 30.1 ml LA Sys Volume AL 46.8 cm cubed LA Sys Volume Index AL 19.6 cm cubed/m squared Aorta at Sinotubular Diameter 3.1 cm IVC Diameter 2.4 cm M-MODE LA Ao Ratio MM 1.2 AV Cusp Separation MM 2.9 cm DOPPLER AV Peak Velocity 269.3 cm/s LVOT Peak Velocity 66.0 cm/s AV Area Cont Eq vti 2.0 cm squared AV Area Cont Eq pk 0.8 cm squared MV Peak Velocity 122.0 cm/s MV Area PHT 2.7 cm squared Mitral E to A Ratio 1.1 TR Peak Velocity 170.0 cm/s TR Peak Gradient 11.6 mmHg TV Peak E Velocity 61.0 cm/s PV Peak Velocity 107.0 cm/s FINDINGS Left Ventricle Moderately increased left ventricular cavity size. Severely decreased left ventricular systolic function. Left ventricular ejection fraction is estimated at 30 %. Global left ventricular hypokinesis. Grade II/IV diastolic dysfunction, moderately elevated filling pressures. Right Ventricle The right ventricle is normal in size and function. Right Atrium The right atrium is normal in size. Left Atrium Moderately increased left atrial size. Mitral Valve Moderately thickened mitral valve. No mitral valve stenosis. Moderate-severe mitral valve regurgitation. Aortic Valve Moderate aortic valve calcification. No aortic valve stenosis. Moderate aortic valve regurgitation. Tricuspid Valve Structurally normal tricuspid valve without significant stenosis or regurgitation. Pulmonary artery systolic pressure is normal. Pulmonic Valve Structurally normal pulmonic valve without significant stenosis. There is no pulmonic regurgitation. Pericardium Normal pericardium without effusion. Aorta Normal ascending aorta dimension. IVC The inferior vena cava appears normal. CONCLUSIONS Moderately increased left ventricular cavity size. Severely decreased left ventricular systolic function. Left ventricular ejection fraction is estimated at 30 %. Global left ventricular hypokinesis. Grade II/IV diastolic dysfunction, moderately elevated filling pressures. Moderately increased left atrial size. Moderate aortic valve calcification. No aortic valve stenosis. Moderate aortic valve regurgitation. Moderately thickened mitral valve. No mitral valve stenosis. Moderate-severe mitral valve regurgitation. There is no pericardial effusion. Right atrial pressure is around 10 mm of mercury. Tali Alba MD (Electronically Signed) Final Date: 29 Aug 2024 17:44 S
== END 2024-08-09 11:05 | disposition home or self-care (01) ==
PROVIDERS: PCP Nurse Practitioner; Visit Provider Internal Medicine Cardiovascular Disease
DX: I42.9 Cardiomyopathy, unspecified (principal); I51.7 Cardiomegaly; R93.1 Abnormal findings on diagnostic imaging of heart and coronary circulation; I34.0 Nonrheumatic mitral (valve) insufficiency; I35.8 Other nonrheumatic aortic valve disorders; I35.1 Nonrheumatic aortic (valve) insufficiency
CPT/HCPCS: 93306

== ENCOUNTER 2024-12-08 10:53 | Outpatient (CLI) | payer MEDICAID, SELFPAY ==
[2024-12-08 11:43] LABS: Alanine Aminotransferase 39 U/L (0-41); Albumin Level 4.1 g/dL (3.5-5.2); Alkaline Phosphatase 108 U/L (40-130); Anion Gap 14.9 (5-19); Aspartate Amino Transferase 37 U/L (0-40); Blood Urea Nitrogen 16 mg/dL (6-20); Calcium 9.4 mg/dL (8.5-10.5); Carbon Dioxide 24 mmol/L (22-29); Chloride 99 mmol/L (98-107); Globulin 3.4 g/dL (1.3-4.6); Glucose 159 mg/dL (65-115); Osmolality Calculated 283 mOsm/kg (285-295); Potassium 3.9 mmol/L (3.5-5.1); Sodium 134 mmol/L (136-145); Total Protein 7.5 g/dL (6.6-8.7)
[2024-12-08 11:45] LABS: Estmated Average Glucose 143; Hemoglobin A1C 6.6 % (4.0-6.0)
[2024-12-08 11:46] LABS: Creatinine Urine, Random 129 mg/dL (39-259); Microalbum Creatinine Ratio Ur 8 mg/dL (0-20)
== END 2024-12-08 10:54 | disposition home or self-care (01) ==
LOC: LAB 10:56
PROVIDERS: PCP Nurse Practitioner; Visit Provider Internal Medicine
DX: E11.65 Type 2 diabetes mellitus with hyperglycemia (principal)
CPT/HCPCS: 36415; 80053; 82044; 83036

== ENCOUNTER → 2025-01-31 11:40 | Outpatient (BNVA) | payer MEDICAID, SELFPAY | PROVIDERS: PCP Nurse Practitioner; Visit Provider Clinical Nurse Specialist Adult Health | DX: R05.9 Cough, unspecified (principal); R31.29 Other microscopic hematuria; N39.0 Urinary tract infection, site not specified | CPT/HCPCS: 71046; 80053; 81000; 85007; 85025; 85651; 86140; 87086 ==

== ENCOUNTER → 2025-02-02 11:08 | Outpatient (BNVA) | payer MEDICAID, SELFPAY | PROVIDERS: PCP Nurse Practitioner; Visit Provider Clinical Nurse Specialist Adult Health | DX: E87.1 Hypo-osmolality and hyponatremia (principal); D69.6 Thrombocytopenia, unspecified | CPT/HCPCS: 80053; 85025 ==

== ENCOUNTER → 2025-02-07 09:25 | Outpatient (BNVA) | payer MEDICAID, SELFPAY | PROVIDERS: PCP Nurse Practitioner; Visit Provider Clinical Nurse Specialist Adult Health | DX: D69.6 Thrombocytopenia, unspecified (principal); E87.1 Hypo-osmolality and hyponatremia; N39.0 Urinary tract infection, site not specified | CPT/HCPCS: 80053; 85025 ==

== ENCOUNTER 2025-03-17 08:23 | Outpatient (CLI) | payer MEDICAID, SELFPAY ==
--- NOTE | 2025-03-17 06:15 | USCV_ITS ---
Casimiro Garcia Age: 60 Gender: M : 1965 Exam Date: 03/17/2025 08:38 Ordering Phys: Tali Alba MD ([email or web address]) Technologist: JAMEE Exam Location: [facility] – [place] Indication: Cardiomyopathy BP: 146 / 70 HR: 68 Rhythm: Sinus Technical Quality: Adequate MEASUREMENTS (Male / Female) Normal Values 2D ECHO LV Diastolic Diameter PLAX 7.9 cm 4.2 - 5.9 / 3.9 - 5.3 cm IVS Diastolic Thickness 0.8 cm 0.6 - 1.0 / 0.6 - 0.9 cm IVS Systolic Thickness 0.7 cm LVPW Diastolic Thickness 0.8 cm 0.6 - 1.0 / 0.6 - 0.9 cm LVPW Systolic Thickness 1.1 cm LVOT Diameter 2.1 cm LV Ejection Fraction 2D Teich 12.0 % LV Ejection Fraction MOD 4C 36.8 % LV Ejection Fraction MOD 2C 44.5 % LV Ejection Fraction 2C AL 44.7 % LA Diameter 3.9 cm RA Systolic Volume 4C AL 36.5 ml RA Systolic Volume 4C MOD 34.2 ml LA Sys Volume AL 45.1 cm cubed LA Sys Volume Index AL 18.8 cm cubed/m squared Aorta at Sinotubular Diameter 3.0 cm IVC Diameter 1.3 cm M-MODE LA Ao Ratio MM 1.4 AV Cusp Separation MM 2.3 cm DOPPLER AV Peak Velocity 117.0 cm/s LVOT Peak Velocity 76.0 cm/s AV Area Cont Eq vti 2.6 cm squared AV Area Cont Eq pk 2.2 cm squared MV Peak Velocity 98.0 cm/s MV Area PHT 4.9 cm squared Mitral E to A Ratio 0.9 TR Peak Velocity 95.0 cm/s TR Peak Gradient 3.6 mmHg TV Peak E Velocity 75.0 cm/s PV Peak Velocity 98.0 cm/s FINDINGS Left Ventricle Moderately increased left ventricular cavity size. Moderately decreased left ventricular systolic function. Left ventricular ejection fraction is estimated at 40-45 %. Grade I/IV diastolic dysfunction (abnormal relaxation filling pattern), normal to mildly elevated filling pressures. Right Ventricle Normal right ventricular size and systolic function. Right Atrium Normal right atrial size. Left Atrium Normal left atrial size. IA Septum Normal appearance of the interatrial septum. Mitral Valve Mildly thickened mitral valve. No mitral valve stenosis. Mild mitral valve regurgitation. Aortic Valve Mild aortic valve calcification. No aortic valve stenosis. Mild- to-moderate aortic valve regurgitation. Tricuspid Valve Normal tricuspid valve structure. No tricuspid valve stenosis or regurgitation. Normal pulmonary pressure. Pulmonic Valve Normal pulmonic valve structure. No pulmonic valve stenosis or regurgitation. Pericardium No pericardial effusion. Aorta Normal diameter of the aortic root and ascending thoracic aorta. IVC Normal IVC diameter. CONCLUSIONS Moderately increased left ventricular cavity size. Moderately decreased left ventricular systolic function. Left ventricular ejection fraction is estimated at 40-45 %. Grade I/IV diastolic dysfunction (abnormal relaxation filling pattern), normal to mildly elevated filling pressures. Mild aortic valve calcification. No aortic valve stenosis. Mild- to-moderate aortic valve regurgitation. Mildly thickened mitral valve. No mitral valve stenosis. Mild mitral valve regurgitatio There is no pericardial effusion. Right atrial pressure is around 5 mm of mercury. Tali Alba MD (Electronically Signed) Final Date: 18 March 2025 13:23 S
== END 2025-03-17 08:24 | disposition home or self-care (01) ==
LOC: RAD 08:23
PROVIDERS: PCP Nurse Practitioner; Visit Provider Internal Medicine Cardiovascular Disease
DX: I42.9 Cardiomyopathy, unspecified (principal); I70.0 Atherosclerosis of aorta; I51.89 Other ill-defined heart diseases; I34.0 Nonrheumatic mitral (valve) insufficiency
CPT/HCPCS: 93306

== ENCOUNTER → 2025-03-29 16:09 | Outpatient (BNVA) | payer MEDICAID, SELFPAY | PROVIDERS: PCP Nurse Practitioner; Visit Provider Nurse Practitioner | DX: E11.65 Type 2 diabetes mellitus with hyperglycemia (principal); E55.9 Vitamin D deficiency, unspecified | CPT/HCPCS: 80053; 80061; 81000; 82043; 83036; 84443 ==